=== PATIENT | male | born 1955 | race Caucasian/White ===

== ENCOUNTER 2017-06-21 17:10 | Day surgery (SDC) | payer OTHER ==
[2017-06-21] VITALS (7 sets, daily range): BP systolic 80–107; BP diastolic 39–60; PULSE 72–86; TEMP 98.4
[~2017-06-21] VITALS: Ht 182.9 cm; Wt 86.3 kg
[2017-06-21] MEDS ORDERED: ADVIL200 MG (18:27)
[2017-06-22 00:35] VITALS: BP 84/48; PULSE 69
[2017-06-22 01:35] VITALS: BP 87/48; PULSE 60
[2017-06-22 02:35] VITALS: BP 87/53; PULSE 59; TEMP 98.2
[2017-06-22 05:57] VITALS: BP 93/50; PULSE 61; TEMP 98.2
[2017-06-22 09:15] VITALS: BP 100/59; PULSE 78; TEMP 98.5
[2017-06-22] MEDS ORDERED: NORCO 325 MG-51 TAB PO (10:01)
== END 2017-06-22 11:00 | disposition home or self-care (01) ==
LOC: SDCO 17:10 → SURG 17:11 → SDCO 06-22 11:00
DX: K35.80 Unspecified acute appendicitis (principal); R12 Heartburn; M06.9 Rheumatoid arthritis, unspecified
CPT/HCPCS: OP; J0171; J0696; J1100; J1885; J2405; J2550; J2704; J2710; J3010; J7120